=== PATIENT | male | born 1950 | race Hispanic/Latino ===

== ENCOUNTER 2017-06-12 11:51 | Observation (INO) | payer MEDICARE, OTHER ==
[2017-06-12 12:28] LABS: #Basophils 0.1 thou/uL (0.0-0.2); #Eosinphils 0.4 thou/uL (0.0-0.7); #Lymphocytes 1.3 thou/uL (1.20-3.40); #Monocytes 0.4 thou/uL (0.11-0.59); #Neutrophils 3.7 thou/uL (1.40-6.50); %Basophils 0.9 % (0.0-1.0); %Eosinophils 6.3 % (0.0-10.0); %Lymphocytes 22.2 % (21.0-51.0); %Neutrophils 64.7 % (42.0-75.0); Hemoglobin 16.1 g/dL (14.0-18.0); Mean Corpuscular HGB CONC 33.7 g/dL (32.0-36.0); Mean Corpuscular Hemoglobin 31.9 pg (27.0-31.0); Mean Corpuscular Volume 94.6 fl (80.0-94.0); Mean Platelet Volume 7.9 fL (7.4-10.4); Platelet Count 151 thou/uL (130-400); RBC Distribution Width 12.4 % (11.5-14.5); Red Blood Cell (RBC) Count 5.06 mill/uL (4.70-6.10); White Blood Cell (WBC) Count 5.7 thou/uL (4.8-10.8)
[2017-06-12 12:46] LABS: ALT (SGPT) 17 U/L (8-55); AST (SGOT) 16 U/L (5-34); Albumin 4.7 g/dL (3.4-4.8); Alkaline Phosphatase 80 U/L (40-150); Anion Gap 14 mmol/L (10-20); BUN (Urea Nitrogen) 15 mg/dL (8.4-25.7); Bilirubin, Total 1.2 mg/dL (0.2-1.2); Calc. Creatinine Clearance 0 mL/min (70-130); Carbon Dioxide 29 mmol/L (23-31); Chloride 102 mmol/L (98-107); Estimated GFR-MDRD 85; Globulin 2.8 g/dL (2.4-3.5); Glucose 274 mg/dL (80-115); Potassium 4.6 mmol/L (3.5-5.1); Protein, Total 7.5 g/dL (5.8-8.1); Sodium 140 mmol/L (136-145)
[2017-06-12 13:51] LABS: PTT 24.8 SEC (22.9-36.1); Prothrombin Time 13.6 SEC (12.0-14.7)
[2017-06-12] MEDS ORDERED: hydrALAZINE 20 MG/ML VIAL ONE (13:59)
[2017-06-12 14:00] LABS: CKMB 1.4 ng/mL (0-6.6); Troponin I Less than 0.010 ng/mL (< 0.028)
--- NOTE | 2017-06-12 14:29 | RAD ---
PORTABLE UPRIGHT FRONTAL CHEST: Date: 06/12/17 COMPARISON: 01/17/09. HISTORY: Dizziness and syncope. FINDINGS: Mild increased linear and interstitial densities are noted, stable. No pneumothorax, pleural fluid, f ocal consolidation, or alveolar edema. IMPRESSION: No acute findings. POS: [facility]
[2017-06-12 14:45] LABS: Amphetamine Not Detected (NotDetected); Barbiturates Screen Not Detected (NotDetected); Benzodiazepine Screen Not Detected (NotDetected); Cocaine Metabolite Screen Detected (NotDetected); Medtox Control Line Valid? VALID (VALID); Medtox Reader # READER 4; Methadone Not Detected (NotDetected); Methamphetamine Not Detected (NotDetected); Opiate Screen Not Detected (NotDetected); Oxycodone Screen Not Detected (NotDetected); Phencyclidine (PCP) Not Detected (NotDetected); THC/Cannabinoid Screen Detected (NotDetected); Tricyclic Screen Not Detected (NotDetected)
--- NOTE | 2017-06-12 14:54 | CT ---
HEAD CT WITHOUT CONTRAST: Date: 06/12/17 COMPARISON: None. HISTORY: Dizziness, vertigo, double vision. TECHNIQUE: Serial axial CT imaging is obtained at 5 mm intervals from vertex through skull base without contrast . FINDINGS: Imaged paranasal sinuses/mastoid air cells appear well aerated. There is no displaced calvarial fraca ture. No intracranial hemorrhage, midline shift, mass effect, or ventricular enlargement. IMPRESSION: No intracranial hemorrhage or displaced calvarial fracture. POS: [facility]
--- NOTE | 2017-06-12 15:23 | HP ---
PRIMARY CARE PHYSICIAN: Dr. Nidhi Garsia. REASON FOR ADMISSION: Dizziness. HISTORY OF PRESENT ILLNESS: A 66-year-old male, who has history of liver transplant, on imm unosuppressive therapy as well as a history of diabetes type 2, hypertension, who presented to the em ergency room with complaint of dizziness. The patient reports that on Wednesday about 6 days ago, when [place], he was feeling dizziness. He was not able to focus. He tried to pul l over his car, but he was not able to do that because he was feeling somewhat blurred vision as well as some double vision. Somehow, he was able to go straight with a close handling. He denied any na usea or vomiting. He denied any headache, focal motor or sensory symptoms. Since then, he was feeli ng dizziness. He was feeling as if spinning everything. About 1 month ago, he had a similar episode , but it was recovered within hour, but this time he has not recovered completely. He denies any priti st pain, palpitations, shortness of breath, fall injury. He denies any trauma. He denies any fever or chills. He denies any recent upper respiratory infection. He denies any ear pain or tinnitus. T he patient reports that about a month ago, he had some blood in his right ear and he was feeling mild pain in his right ear and for that reason, he was trying to see ENT doctor, but problem solved by it self and that is why he did not make appointment with ENT doctor. This patient when he presented to emergency room, his blood pressure was 205/89. He had routine bloo d test, which was normal. He had CT brain and chest x-ray, which was normal. At this point, we are admitting this patient for possible stroke to rule out any cerebellar involvement. ALLERGIES: No known drug allergies. CURRENT HOME MEDICATIONS: Prograf 1 mg p.o. daily, glimepiride 2 mg p.o. daily, Coreg 12.5 mg p.o. d aily, sirolimus 1 mg p.o. daily, and aspirin 81 mg p.o. daily. REVIEW OF SYSTEMS: The following complete review of systems was negative, unless otherwise mentioned in the HPI or below: Constitutional: Weight loss or gain, ability to conduct usual activities. Skin: Rash, itching. Eyes: Double vision, pain. ENT/Mouth: Nose bleeding, neck stiffness, pain, tenderness. Cardiovascular: Palpitations, dyspnea on exertion, orthopnea. Respiratory: Shortness of breath, wheezing, cough, hemoptysis, fever or night sweats. Gastrointestinal: Poor appetite, abdominal pain, heartburn, nausea, vomiting, constipation, or diarr hea. Genitourinary: Urgency, frequency, dysuria, nocturia. Musculoskeletal: Pain, swelling. Neurologic/Psychiatric: Anxiety, depression. Allergy/Immunologic: Skin rash, bleeding tendency. Please see my HPI for pertinent positives and negatives. All other review of system reviewed and neg ative except as mentioned in the HPI PAST MEDICAL HISTORY: History of liver cirrhosis secondary to hepatitis C, history of liver transpla nt due to liver cancer after cirrhosis, hypertension, dyslipidemia, diabetes type 2. PAST SURGICAL HISTORY: Liver transplantation. PAST PSYCHIATRIC HISTORY: Reviewed and negative. SOCIAL HISTORY: The patient drinks alcohol socially and occasionally. He denies any other illicit d rug abuse. He smokes a few cigarettes daily basis. FAMILY HISTORY: No strong family history of premature coronary artery disease, stroke, or cancer. EMERGENCY ROOM COURSE: Patient is given aspirin 324 mg, hydralazine 10 mg. PHYSICAL EXAMINATION: VITAL SIGNS: On arrival, blood pressure 205/89, pulse 69, respiratory rate 18, temperature 97.8, sat uration 98% on room air, weight 63.5 kilograms. GENERAL: Patient is currently alert, awake, no obvious acute distress. HEENT: Head is normocephalic, atraumatic. Eyes: Pupils round, reactive to light. The patient does have nystagmus on the right side. The patient does have right-sided horizontal nystagmus. ENT: Oropharynx within normal limits. Moist mucous membranes. No oral lesions. No pharyngeal eryt sandy, no exudates. NECK: Supple, no JVD, no thyromegaly, no carotid bruit, no jugular venous distention. LUNGS: Clear to auscultation without any rhonchi or rales. CARDIAC: S1 and S2 regular without any significant murmur. ABDOMEN: Soft, bowel sounds present, nontender and nondistended. No organomegaly, no mass, no supra pubic tenderness. BACK: Unremarkable, no CVA tenderness. EXTREMITIES: Upper extremity passive movement of all joints are normal. Lower extremities: No lianet a. Good peripheral pulsation. SKIN: No skin rash. HEMATOLOGICAL: No lymphadenopathy. PSYCHIATRIC: Normal affect. NEUROLOGIC: Patient is alert and oriented x3. Speech normal. Cranial nerve II through XII intact e xcept horizontal nystagmus, normal cerebellar signs. Motor 5/5 in all four limbs. Sensation bilater ally symmetrical. Reflexes symmetrical. Plantar bilateral flexor. Gait: Patient has tendency to f all on the back side. SIGNIFICANT LABORATORY DATA: EKG based on my review reveals normal sinus rhythm. No acute ischemic changes. CT brain without contrast negative for any acute intracranial process. Chest x-ray based o n my review, no acute cardiopulmonary process. CBC: WBC 5.7, hemoglobin 16.1, platelets 151. INR 1.0. BMP: Sodium 140, potassium 4.6, chloride 102, carbon dioxide 29, anion gap 14, BUN 15, creatinine 0. 90, glucose 274, calcium 10.0. LFT: AST 16, ALT 17, alkaline phosphatase 80, albumin 4.7. CK 99, C K-MB 1.4, troponin I less than 0.010. ASSESSMENT AND PLAN: 1. Dizziness. This patient has a weird presentation, he has atypical presentation for vertigo. I a m suspecting that given his history of diabetes, hypertension, and unknown cholesterol status as well as his age and risk factors with smoking. He is at risk for cerebellar stroke. This patient's symp toms started on Wednesday and since then he has not recovered. He does not have any clear cut vestibuli tis or vestibular symptoms. He does have nystagmus. So at this point, another possibility is peripl eural vertigo, but less likely. At this point, we will keep this patient in the hospital for observa tion. We will do MRI of brain. We will check urine drug screen, TSH, hemoglobin A1c, and lipid prof ile. We will do MRI brain for further evaluation. We will check lipid profile tomorrow morning. Me anwhile, we will continue with aspirin 325 mg p.o. daily. We will treat his vertigo with Antivert 25 mg t.i.d. and we will control his risk factor including diabetes, hypertension. 2. Diabetes type 2. We will check hemoglobin A1c. We will continue glimepiride 2 mg p.o. daily and we will continue with insulin as per sliding scale per protocol. Diabetic diet will be given. 3. Hypertension. We will continue Coreg 12.5 mg p.o. daily as per home dosage and we will use hydra lazine p.r.n. basis. 4. History of liver transplant after liver cancer with history of hepatitis C. Currently, patient i s on immunosuppressive therapy with Prograf 1 mg p.o. daily and sirolimus 1 mg p.o. daily, which we w ill continue while in hospital. 5. Deep venous thrombosis prophylaxis not needed because we are expecting discharge in 24 hours. 6. Gastrointestinal prophylaxis, Pepcid 20 mg p.o. b.i.d. 7. Code status: The patient is FULL CODE. Patient does not have any surrogate decision maker. 8. Tobacco abuse disorder. Smoking cessation counseling given. Healthy lifestyle measures discusse d with the patient. 9. Deep venous thrombosis prophylaxis not needed because we are expecting discharge in 24 hours. 10. Gastrointestinal prophylaxis, Pepcid 20 mg p.o. b.i.d. Disposition plan within 24 hours, pending MRI results. Plan of care discussed with the patient in de tail in the emergency room.
[2017-06-12 16:16] VITALS: BMI 23.3
[2017-06-12] MEDS ORDERED: Acetaminophen 325 MG TAB PO PRN ×2 (16:24→16:55)
[2017-06-12] MEDS ORDERED: Ondansetron ODT 4 MG TAB SL PRN (16:24)
[2017-06-12] MEDS ORDERED: Ondansetron HCl/PF 4 MG/2 ML Vial IVP PRN ×2 (16:24→16:55)
[2017-06-12 16:47] LABS: Troponin I 0.011 ng/mL (< 0.028)
[2017-06-12] MEDS ORDERED: Sodium Chloride 0.65% Nasal 44 ML BOT EA NARE PRN (16:55)
[2017-06-12] MEDS ORDERED: HYDROcodone/Acetaminophen 5/325 mg Tablet PO PRN (16:55)
[2017-06-12] MEDS ORDERED: Loperamide HCl 2 MG CAP PO PRN (16:55)
[2017-06-12] MEDS ORDERED: Dextrose 50% Abboject 50 ML SYRINGE SLOW IVP PRN (16:55)
[2017-06-12] MEDS ORDERED: HumaLOG 300 UNITS/3 ML VIAL SC PRN ×2 (16:55)
[2017-06-12] MEDS ORDERED: Senokot 8.6 MG TAB PO PRN (16:55)
[2017-06-12] MEDS ORDERED: Chloraseptic Spray 180 ml Bottle PO PRN (16:55)
[2017-06-12] MEDS ORDERED: Artificial Tears 18 DROP/0.9 ML EA EYE PRN (16:55)
[2017-06-12] MEDS ORDERED: hydrALAZINE 20 MG/ML VIAL SLOW IVP PRN (16:55)
[2017-06-12] MEDS ORDERED: Dextrose 5% in Water 1,000 ML IV PRN (16:55)
[2017-06-12] MEDS ORDERED: Ondansetron ODT 4 MG TAB PO PRN (16:55)
[2017-06-12] MEDS ORDERED: Diabetic Tussin 200 MG/10 ML UDCUP PO PRN (16:55)
[2017-06-12] MEDS ORDERED: Mag-Al 1200 mg/1200 mg/30 ML UDCUP PO PRN (16:55)
[2017-06-12] MEDS ORDERED: Eucerin (Mineral Oil/Petrolatum,White) 30 gm Jar TOP PRN (16:55)
[2017-06-12] MEDS ORDERED: Loratadine 10 MG TAB PO PRN (16:55)
[2017-06-12] MEDS ORDERED: Milk Of Magnesia 30 ML UDCUP PO PRN (16:55)
[2017-06-12] MEDS ORDERED: Zolpidem Tartrate 5 MG TAB PO PRN (16:55)
[2017-06-12 20:47] LABS: Troponin I Less than 0.010 ng/mL (< 0.028)
[2017-06-12] MEDS: Famotidine 20 MG TAB PO SCH (20:56)
[2017-06-12] MEDS ORDERED: Atorvastatin Calcium 10 MG TAB PO SCH (21:00)
[2017-06-12] MEDS: Meclizine HCl 25 MG TAB PO SCH (22:14)
--- NOTE | 2017-06-12 22:15 | ULT ---
ULTRASOUND CAROTID DOPPLER 06/12/17 HISTORY: Dizziness. COMPARISON: None. FINDINGS: Ultrasound trejo scale, color doppler and spectral analysis of the extracranial carotid arteries and v ertebral arteries performed with the linear transducer. Antegrade flow of both vertebral arteries. Mi nimal plaque proximal internal carotid arteries bilaterally. No elevated peak systolic velocities wit hin the internal carotid arteries to suggest hemodynamically significant stenosis. IMPRESSION: No hemodynamically significant stenosis. POS: [facility]
[2017-06-13] MEDS: Meclizine HCl 25 MG TAB PO SCH ×2 (05:15→14:48)
[2017-06-13 05:33] LABS: Hemoglobin A1c 7.8 % (4.0-6.0)
[2017-06-13 05:39] LABS: Cardiac Risk 5.8 (Less than 4.5)
[2017-06-13] MEDS ORDERED: Glimepiride 2 MG TAB PO SCH (08:00)
[2017-06-13] MEDS ORDERED: Carvedilol 6.25 MG TAB PO SCH (09:00)
[2017-06-13] MEDS ORDERED: Tacrolimus 1 MG CAP PO SCH (09:00)
[2017-06-13] MEDS ORDERED: Aspirin 325 mg Enteric Coated Tablet PO SCH (09:00)
[2017-06-13] MEDS: Famotidine 20 MG TAB PO SCH (09:30)
--- NOTE | 2017-06-13 10:13 | PDOC.PN ---
- Subjective Encounter Start Date: 06/13/17 Encounter Start Time: 07:50 -: old records requested/rev Patient seen and examined. No new complaints. No overnight events - Objective Resuscitation Status: Resuscitation Status FULL:Full Resuscitation MAR Reviewed: Yes Vital Signs & Weight: Vital Signs (12 hours) Temp Pulse Resp BP Pulse Ox 06/13/17 08:00 97.8 F 52 L 16 134/65 95 06/13/17 04:00 98.4 F 60 18 142/75 H 98 06/13/17 00:00 98.7 F 64 16 124/77 97 I&O: 06/12/17 06/13/17 06/14/17 06:59 06:59 06:59 Intake Total 300 Balance 300 Result Diagrams: 06/12/17 12:15 06/12/17 12:15 Additional Labs: Accuchecks 06/13/17 06/13/17 06/12/17 08:11 05:20 20:49 POC Glucose 88 221 H 190 H Radiology Reviewed by me: Yes (carotid -normal) EKG Reviewed by me: Yes (nsr) Phys Exam - Physical Examination Constitutional: NAD HEENT: PERRLA, moist MMs, sclera anicteric Neck: no JVD, supple Respiratory: no wheezing, no rales, no rhonchi Cardiovascular: RRR, no significant murmur, no rub Gastrointestinal: soft, non-tender, no distention, positive bowel sounds Musculoskeletal: no edema, pulses present Neurological: non-focal, normal sensation, moves all 4 limbs Psychiatric: normal affect, A&O x 3 Skin: no rash, normal turgor Dx/Plan (1) Cocaine abuse Code(s): F14.10 - COCAINE ABUSE, UNCOMPLICATED Status: Acute (2) Dizziness Code(s): R42 - DIZZINESS AND GIDDINESS Status: Acute (3) Tobacco abuse Code(s): Z72.0 - TOBACCO USE Status: Acute (4) Diabetes type 2, controlled Code(s): E11.9 - TYPE 2 DIABETES MELLITUS WITHOUT COMPLICATIONS Status: Chronic (5) Dyslipidemia Code(s): E78.5 - HYPERLIPIDEMIA, UNSPECIFIED Status: Chronic (6) Hypertension Code(s): I10 - ESSENTIAL (PRIMARY) HYPERTENSION Status: Chronic (7) Liver transplant status Code(s): Z94.4 - LIVER TRANSPLANT STATUS Status: Chronic - Plan cont current plan of care * antivert as needed on discharge * today MRI * counselled to avoid polysubstance abuse * medication reviewed as below * symptomatic treatment * see discharge leslie. Review of Systems - Review of Systems ENT: negative: Ear Pain, Ear Discharge, Nose Pain, Nose Discharge, Nose Congestion, Mouth Pain, Mouth Swelling, Throat Pain, Throat Swelling, Other Respiratory: negative: Cough, Dry, Shortness of Breath, Hemoptysis, SOB with Excertion, Pleuritic Pain, Sputum, Wheezing Cardiovascular: negative: chest pain, palpitations, orthopnea, paroxysmal nocturnal dyspnea, edema, light headedness, other Gastrointestinal: negative: Nausea, Vomiting, Abdominal Pain, Diarrhea, Constipation, Melena, Hematochezia, Other Genitourinary: negative: Dysuria, Frequency, Incontinence, Hematuria, Retention , Other Musculoskeletal: negative: Neck Pain, Shoulder Pain, Arm Pain, Back Pain, Hand Pain, Leg Pain, Foot Pain, Other Skin: negative: Rash, Lesions, Bob, Bruising, Other - Medications/Allergies Allergies/Adverse Reactions: Allergies Allergy/AdvReac Type Severity Reaction Status Date / Time No Known Allergies Allergy Unverified 06/12/17 16:24 Medications: Current Medications Acetaminophen (Tylenol) 650 mg PO Q4H PRN PRN Reason: Headache/Fever or Pain Hydrocodone Bitart/Acetaminophen ([place] 5/325) 1 tab PO Q4H PRN PRN Reason: Moderate Pain (4-6) Al Hydroxide/Mg Hydroxide (Maalox) 30 ml PO Q6H PRN PRN Reason: Heartburn or Indigestion Artificial Tears (Tears Naturale) 0 drop EA EYE PRN PRN PRN Reason: Dry Eyes Aspirin (Ecotrin) 325 mg PO DAILY [facility] Last Admin: 06/13/17 09:30 Dose: 325 mg Atorvastatin Calcium (Lipitor) 10 mg PO HS [facility] Last Admin: 06/12/17 20:55 Dose: 10 mg Carvedilol (Coreg) 12.5 mg PO DAILY [facility] Last Admin: 06/13/17 09:30 Dose: 12.5 mg Dextrose/Water (Dextrose 50%) 25 gm SLOW IVP PRN PRN PRN Reason: Hypoglycemia Famotidine (Pepcid) 20 mg PO BID [facility] Last Admin: 06/13/17 09:30 Dose: 20 mg Glimepiride (Amaryl) 2 mg PO QAM[facility] Last Admin: 06/13/17 09:30 Dose: 2 mg Glucagon (Glucagon) 1 mg IM PRN PRN PRN Reason: Hypoglycemia Guaifenesin (Robitussin Sf) 200 mg PO Q4H PRN PRN Reason: Cough Hydralazine HCl (Apresoline) 10 mg SLOW IVP Q4H PRN PRN Reason: Systolic BP > 180 Dextrose/Water (D5w) 1,000 mls @ 0 mls/hr IV .Q0M PRN; As Directed PRN Reason: Hypoglycemia Insulin Human Lispro (Humalog) 0 units SC .MODERATE SLIDING SC PRN PRN Reason: Moderate Correctional Scale Last Admin: 06/13/17 05:23 Dose: 4 unit Insulin Human Lispro (Humalog) 0 units SC .BEDTIME SLIDING SC PRN PRN Reason: Bedtime Correctional Scale Loperamide HCl (Imodium) 2 mg PO PRN PRN PRN Reason: Diarrhea/Loose Stools Loratadine (Claritin) 10 mg PO DAILYPRN PRN PRN Reason: Sinus Symptoms Magnesium Hydroxide (Milk Of Magnesium) 30 ml PO DAILYPRN PRN PRN Reason: Constipation Meclizine HCl (Antivert) 25 mg PO Q8HR [facility] Last Admin: 06/13/17 05:15 Dose: 25 mg Mineral Oil/White Petrolatum (Eucerin Cream) 0 gm TOP BIDPRN PRN PRN Reason: Dry Skin Ondansetron HCl (Zofran Odt) 4 mg PO Q6H PRN PRN Reason: Nausea/Vomiting Ondansetron HCl (Zofran) 4 mg IVP Q6H PRN PRN Reason: Nausea/Vomiting Sirolimus 1 Mg Tab 0 each PO DAILY [facility] Phenol (Chloraseptic [place] 180 Ml Bot) 0 ml PO PRN PRN PRN Reason: Sore Throat Senna (Senokot) 2 tab PO HSPRN PRN PRN Reason: Constipation Sodium Chloride ([place] Nasal [place] 0.65%) 0 ml EA NARE QIDPRN PRN PRN Reason: Nasal Congestion Tacrolimus (Prograf) 1 mg PO DAILY [facility] Last Admin: 06/13/17 09:31 Dose: 1 mg Zolpidem Tartrate (Ambien) 5 mg PO HSPRN PRN PRN Reason: Insomnia
--- NOTE | 2017-06-13 10:35 | DIS ---
DATE OF ADMISSION: 06/12/2017 DATE OF DISCHARGE: 06/13/2017 PRIMARY CARE PHYSICIAN: Chata call admission. DISCHARGE DISPOSITION: Home. PRIMARY DISCHARGE DIAGNOSES: 1. Dizziness, resolved. 2. Cocaine and marijuana abuse. SECONDARY DISCHARGE DIAGNOSES: Liver transplantation status, hypertension, immunosuppressive therapy , dyslipidemia, diabetes type 2, and tobacco abuse disorder. PRIMARY PROCEDURE/OPERATION: None. RADIOLOGICAL INVESTIGATION: CT brain normal. Chest x-ray was normal. Carotid Doppler normal. SIGNIFICANT LABORATORY DATA: WBC 5.7, hemoglobin 16.1, platelets 151. INR 1.0, sodium 140, creatini ne 0.90. LFT normal. Cardiac enzymes negative. TSH 1.09, hemoglobin A1c 7.8, LDL 138, cholesterol 210, triglycerides 178, homocysteine 3.76. Urine drug screen positive for cocaine and cannabinoids. DISCHARGE MEDICATIONS: Aspirin 325 mg p.o. daily, Lipitor 10 mg p.o. at bedtime, calcium carbonate 6 00 mg p.o. daily, Coreg 12.5 mg p.o. daily, vitamin B12 3000 mcg p.o. daily, glimepiride 2 mg p.o. b. i.d., Antivert 25 mg p.o. q.8 hourly p.r.n., multivitamin 1 tablet p.o. daily, Sirolimus 1 mg p.o. [place], tacrolimus 1 mg p.o. daily. CONTRAINDICATIONS: None. CODE STATUS: FULL CODE. INPATIENT CONSULTANTS: None. ALLERGIES: No known drug allergy. DISCHARGE PLAN: Post hospital, patient will follow up with primary care physician, Dr. Mccarthy. HOSPITAL COURSE: A 66-year-old male with above mentioned medical problems who was admitted for dizzi ness. Please see my HPI from yesterday for further details. He was having some blurred vision, dipl opia as well as ongoing dizziness for almost 5 days and that is why he came to the emergency room. I n the emergency room, chest x-ray was normal. CT brain was normal. He was hypertensive on arrival. He was admitted to stroke floor for rule out CVA. We did a urine drug screen and it was positive fo r cocaine and cannabinoids. We provided patient counseling to avoid smoking as well as other illicit drugs. While in hospital, we found that he had LDL elevated and that is why we started Lipitor ther apy. Rest of medication was continued as per previous. Dietary education and healthy lifestyle blanca ure discussed with the patient. Patient had clinical improvement of dizziness with Antivert. We are suspecting predominantly peripheral etiology. We are trying to do MRI brain to rule out any intracr anial process. Carotid Doppler is normal. If MRI is normal, then we will consider discharging him h ome later on today with above-mentioned medications. Please see my progress note from today for furt her details.
[2017-06-13 12:19] VITALS: TEMP 97.9
--- NOTE | 2017-06-13 12:54 | MRI ---
BRAIN MRI WITHOUT CONTRAST: Date: 06/13/17 HISTORY: Dizziness, double vision, vertigo. TECHNIQUE: Multiplanar, multisequence MR imaging of the brain is obtained without contrast. FINDINGS: The diffusion-weighted imaging demonstrates no evidence for acute infarction. The axial gradient echo imaging demonstrates no evidence for intracranial hemorrhage. The arterial flow-voids at the axial level of the skull base demonstrate nonvisualization of the righ t vertebral artery which could signify hypoplasia or occlusion. There are a few scattered foci of inc reased T2/FLAIR signal within the periventricular and deep white matter, suggesting minimal small ves esteban disease. Regional bone marrow signal intensity appears within normal limits. IMPRESSION: No acute findings. POS: [facility]
[2017-06-13 19:33] VITALS: BP 133/81
== END 2017-06-13 18:15 | disposition home or self-care (01) ==
LOC: ERS 11:51 → 2SE 15:49
PROVIDERS: ADMIT Internal Medicine; ATTEND Internal Medicine
DX: R42 Dizziness and giddiness (principal); F14.10 Cocaine abuse, uncomplicated; F12.10 Cannabis abuse, uncomplicated; I10 Essential (primary) hypertension; E78.5 Hyperlipidemia, unspecified; E11.9 Type 2 diabetes mellitus without complications; F17.210 Nicotine dependence, cigarettes, uncomplicated; Z79.82 Long term (current) use of aspirin; Z79.84 Long term (current) use of oral hypoglycemic drugs; Z79.899 Other long term (current) drug therapy; Z94.4 Liver transplant status; Z86.19 Personal history of other infectious and parasitic diseases; Z85.05 Personal history of malignant neoplasm of liver
CPT/HCPCS: 70450; 70551; 71045; 80061; 80306; 82550; 82553; 82962 ×2; 83036; 83090; 84484 ×2; 85610; 85730; 93005; 93306; 93880; 96374; 97139; 99285; 99406; G0378; G8978; G8979; G8980; 36415; 36416; 80053; 84443; 85025; J0360; J7507

== ENCOUNTER 2020-03-15 07:49 | Outpatient (CLI) | payer MEDICARE ==
--- NOTE | 2020-03-15 09:52 | CT ---
CT CHEST WITHOUT IV CONTRAST: DATE: 03/15/2020. PROVIDED CLINICAL HISTORY: Personal history of nicotine dependence, low-dose screening. FINDINGS: The heart, pericardium, and great vessels are suboptimally evaluated in the absence of IV contrast ma terial. Vascular calcification including coronary calcium is demonstrated. There is no evidence for thoracic lymph node enlargement with limitations due to lack of IV contrast material. No pleural fl uid, pleural thickening, or pneumothorax apparent. There is a 9.2 mm right upper lobe pulmonary nodule (image 26 series 3). Several additional sub-6 mm average axial dimension nodules are present in the right upper lobe. The lungs appear otherwise magno e of significant opacity. The visualized portions of the upper abdomen demonstrate an unremarkable unenhanced CT appearance. T he osseous structures demonstrate no concerning lytic or blastic lesions. IMPRESSION: 1. Lung RADS category 4A. Followup CT examination in 3 months with low-dose is recommended. 2. Vascular calcification including coronary calcium. POS: [facility]
== END 2020-03-15 07:50 | disposition home or self-care (01) ==
LOC: BICCT 07:49
PROVIDERS: ATTEND Internal Medicine
DX: Z12.2 Encounter for screening for malignant neoplasm of respiratory organs (principal); F17.210 Nicotine dependence, cigarettes, uncomplicated; I70.90 Unspecified atherosclerosis
CPT/HCPCS: G0297

== ENCOUNTER 2020-03-19 07:42 | Outpatient (CLI) | payer MEDICARE ==
--- NOTE | 2020-03-19 08:41 | ULT ---
Exam: Abdominal aortic ultrasound. HISTORY: Screening study for aneurysm. Patient is a smoker. TECHNIQUE: Grayscale, color flow, Doppler imaging and spectral waveform analysis of the aorta FINDINGS: Visualized aorta is patent. There is atherosclerotic disease in the left iliac artery and distal abdo john aorta. Proximal aorta: 2.9 x 2.7 cm Mid aorta: 2.4 x 3.1 cm Distal aorta: 2.1 x 2.0 cm Left iliac artery: 0.9 cm x 1.1 cm Right iliac artery: 1.1 x 1.0 cm IMPRESSION: 1. Atherosclerosis in the left iliac artery and distal abdominal aorta. 2. Upper normal caliber of the mid abdominal aorta.
== END 2020-03-19 07:43 | disposition home or self-care (01) ==
LOC: BICULT 07:42
PROVIDERS: ATTEND Internal Medicine
DX: Z13.6 Encounter for screening for cardiovascular disorders (principal); I70.0 Atherosclerosis of aorta
CPT/HCPCS: 76775

== ENCOUNTER 2020-08-15 10:53 | Outpatient (CLI) | payer MEDICARE | END 2020-08-15 10:54 | disposition home or self-care (01) | LOC: BICCT 10:53 | PROVIDERS: ATTEND Internal Medicine | DX: Z12.2 Encounter for screening for malignant neoplasm of respiratory organs (principal); F17.210 Nicotine dependence, cigarettes, uncomplicated; R93.89 Abnormal findings on diagnostic imaging of other specified body structures; J98.4 Other disorders of lung; R91.1 Solitary pulmonary nodule | CPT/HCPCS: 71271 ==

== ENCOUNTER 2021-04-03 08:16 | Outpatient (CLI) | payer MEDICARE | END 2021-04-03 08:17 | disposition home or self-care (01) | LOC: BICULT 08:16 | PROVIDERS: ATTEND Internal Medicine | DX: Z13.6 Encounter for screening for cardiovascular disorders (principal) | CPT/HCPCS: 76775 ==

== ENCOUNTER 2021-09-01 08:37 | Outpatient (CLI) | payer MEDICARE | END 2021-09-01 08:38 | disposition home or self-care (01) | LOC: BICCT 08:37 | PROVIDERS: ATTEND Internal Medicine | DX: Z12.2 Encounter for screening for malignant neoplasm of respiratory organs (principal); F17.210 Nicotine dependence, cigarettes, uncomplicated | CPT/HCPCS: 71271 ==

== ENCOUNTER 2022-09-28 08:14 | Outpatient (CLI) | payer OTHER | END 2022-09-28 08:15 | disposition home or self-care (01) | LOC: BICCT 08:14 | PROVIDERS: ATTEND Internal Medicine | DX: Z12.2 Encounter for screening for malignant neoplasm of respiratory organs (principal); F17.210 Nicotine dependence, cigarettes, uncomplicated | CPT/HCPCS: 71271 ==

== ENCOUNTER 2023-02-17 09:24 | Outpatient (CLI) | payer MEDICARE | END 2023-02-17 09:25 | disposition home or self-care (01) | LOC: ULT 09:24 | PROVIDERS: ATTEND Internal Medicine | DX: Z48.23 Encounter for aftercare following liver transplant (principal) | CPT/HCPCS: 76700 ==

== ENCOUNTER 2023-11-18 13:44 | Outpatient (CLI) | payer MEDICARE | END 2023-11-18 13:45 | disposition home or self-care (01) | LOC: BICCT 13:44 | PROVIDERS: ATTEND Internal Medicine | DX: Z12.2 Encounter for screening for malignant neoplasm of respiratory organs (principal); F17.210 Nicotine dependence, cigarettes, uncomplicated; J98.4 Other disorders of lung | CPT/HCPCS: 71271 ==